=== PATIENT | female | born 1935 | race Caucasian/White ===

== ENCOUNTER 2019-11-26 10:50 | Emergency (ER) | payer MEDICARE ==
[~2019-11-26] VITALS: Ht 165.1 cm; Wt 83.0 kg
[2019-11-26] MEDS ORDERED: IOHEXOL 300 MG/ML 75 ML VIAL. IV ONE (12:00)
[2019-11-26 12:09] LABS: BASO # 0.1 x10^3/uL (0.0-0.2); BASO % 1 % (0-3); EOS # 0.1 x10^3/uL (0.0-0.7); EOS % 1 % (0-3); HEMOGLOBIN 11.5 g/dL (12.0-15.5); LYMPH # 2.9 x10^3/uL (1.0-4.8); LYMPH % 28 % (24-48); MEAN CORPUSCULAR HEMOGLOBIN 34 pg (25-35); MEAN CORPUSCULAR HGB CONC 34 g/dL (31-37); MEAN CORPUSCULAR VOLUME 99 fL (79-100); MONO # 0.9 x10^3/uL (0.0-1.1); MONO % 8 % (0-9); NEUT # 6.4 x10^3uL (1.8-7.7); NEUT % 62 % (31-73); PLATELET COUNT 237 x10^3/uL (140-400); RED BLOOD COUNT 3.42 x10^6/uL (3.50-5.40); RED CELL DISTRIBUTION WIDTH 14.2 % (11.5-14.5); WHITE BLOOD COUNT 10.4 x10^3/uL (4.0-11.0)
[2019-11-26 12:15] LABS: CREATININE 1.5 mg/dL (0.6-1.0); POTASSIUM 4.1 mmol/L (3.5-5.1)
[2019-11-26 12:20] LABS: ALBUMIN 3.1 g/dL (3.4-5.0); ALBUMIN/GLOBULIN RATIO 0.9 (1.0-1.7); TOTAL BILIRUBIN 0.3 mg/dL (0.2-1.0); TOTAL PROTEIN 6.7 g/dL (6.4-8.2)
--- NOTE | 2019-11-26 12:53 | RAD ---
CT ABDOMEN PELVIS WO CONTRAST History: Reason: right hip pain to groin, h/o uti sepsis / Spl. Instructions: / History: Technique: Noncontrast examination of the abdomen and pelvis. Coronal and sagittal reconstructions were performed. Exposure: One or more of the following individualized dose reduction techniques were utilized for this examination: 1. Automated exposure control 2. Adjustment of the mA and/or kV according to patient size 3. Use of iterative reconstruction technique. Comparison: None Findings: Lower chest: No consolidation or pleural effusion. Small hiatal hernia. Abdomen and pelvis: The liver, spleen, adrenal glands, pancreas and gallbladder are unremarkable. No biliary ductal dilatation. Mild renal cortical thinning. No hydronephrosis. No renal, ureteral or urinary bladder calculi. The compressed urinary bladder. Pessary noted. Prior hysterectomy. Mild colonic diverticulosis. Small fat-containing umbilical hernia. Normal appendix. No evidence of bowel obstruction. No pathologic lymphadenopathy. No ascites. Atheromatous plaque throughout the nonaneurysmal abdominal aorta. Dystrophic calcification within the gastrohepatic region. Bones: Multilevel lumbar spondylosis. Impression: 1. No acute abdominal or pelvic pathology. Electronically signed by: Cody Lara DO (11/26/2019 12:50 PM) [facility]
--- NOTE | 2019-11-26 13:08 | PHYS DOC ---
Past History Past Medical History: Hypertension, UTI Additional Past Medical Histor: fracture wrist left 1999 Past Surgical History: Hysterectomy Alcohol Use: None General Adult EDM: Chief Complaint: GROIN PAIN HPI: HPI: 83-year-old female past medical history significant for hypertension, hyperlipidemia, polymyalgia rheumatica on daily steroids, presents to the ED with complaints of right hip pains rating to the right groin that started a few days ago, described as burning in nature. Patient states she drove here yesterday from [place], and the day before that was coming from [place]. States she is visiting the recent of her great granddaughter. States prior to this pain she was having right hip pain that radiated down her leg she saw her primary care physician for it. Patient with a past surgical history of total abdominal hysterectomy and states she is worried about her appendix. Has not missed her daily steroids. Review of Systems: Review of Systems: Constitutional: Denies fever or chills Eyes: Denies change in visual acuity HENT: Denies nasal congestion or sore throat Respiratory: Denies cough or shortness of breath Cardiovascular: Denies chest pain or edema GI: Denies nausea, vomiting, bloody stools or diarrhea : Denies dysuria, materia Musculoskeletal: Denies back pain/CVA or joint pain Integument: Denies rash Neurologic: Denies headache, focal weakness or sensory changes, saddle anesthesia, urinary or bowel retention or incontinence Endocrine: Denies polyuria or polydipsia Lymphatic: Denies swollen glands Psychiatric: Denies depression or anxiety Heart Score: Risk Factors: Risk Factors: DM, Current or recent (<one month) smoker, HTN, HLP, family history of CAD, obesity. Risk Scores: Score 0 - 3: 2.5% MACE over next 6 weeks - Discharge Home Score 4 - 6: 20.3% MACE over next 6 weeks - Admit for Clinical Observation Score 7 - 10: 72.7% MACE over next 6 weeks - Early Invasive Strategies Current Medications: Current Meds: Current Medications Medications (Trade) Dose Ordered Sig/Catia Start Time Stop Time Status Last Admin Dose Admin Iohexol (Omnipaque 300 Mg/ml) 75 ml 1X ONCE 11/26/19 12:00 11/26/19 12:01 DC Allergies: Allergies: Allergies Coded Allergies Type Severity Reaction Last Updated Verified Vlifxpg-Zyb-Loa Reductase Inhibitor Allergy Mild 11/26/19 Yes morphine Allergy Mild 11/26/19 Yes procaine Allergy Unknown 11/26/19 Yes Physical Exam: PE: Constitutional: Well developed, well nourished, no acute distress, non-toxic appearance. [] HENT: Normocephalic, atraumatic, Eyes: EOMI, conjunctiva normal, no discharge. [] Neck: Normal range of motion, supple, Cardiovascular:Heart rate regular rhythm, no murmur [] Lungs & Thorax: Bilateral breath sounds clear to auscultation [] Abdomen: Bowel sounds normal, soft, RLQ ttp, no abdominal or inguinal hernias, Skin: Warm, dry, no erythema, no rash. [] Back: No tenderness, no CVA tenderness. [] Extremities: No tenderness, no cyanosis, no clubbing, ROM intact, no edema. [] Neurologic: Alert and oriented X 3, normal motor function, normal sensory function, no focal deficits noted. [] Psychologic: Affect normal, judgement normal, mood normal. [] Current Patient Data: Labs: Laboratory Tests Test 11/26/19 11:50 White Blood Count 10.4 x10^3/uL (4.0-11.0) Red Blood Count 3.42 x10^6/uL (3.50-5.40) L Hemoglobin 11.5 g/dL (12.0-15.5) L Hematocrit 34.0 % (36.0-47.0) L Mean Corpuscular Volume 99 fL (79-100) Mean Corpuscular Hemoglobin 34 pg (25-35) Mean Corpuscular Hemoglobin Concent 34 g/dL (31-37) Red Cell Distribution Width 14.2 % (11.5-14.5) Platelet Count 237 x10^3/uL (140-400) Neutrophils (%) (Auto) 62 % (31-73) Lymphocytes (%) (Auto) 28 % (24-48) Monocytes (%) (Auto) 8 % (0-9) Eosinophils (%) (Auto) 1 % (0-3) Basophils (%) (Auto) 1 % (0-3) Neutrophils # (Auto) 6.4 x10^3uL (1.8-7.7) Lymphocytes # (Auto) 2.9 x10^3/uL (1.0-4.8) Monocytes # (Auto) 0.9 x10^3/uL (0.0-1.1) Eosinophils # (Auto) 0.1 x10^3/uL (0.0-0.7) Basophils # (Auto) 0.1 x10^3/uL (0.0-0.2) Sodium Level 139 mmol/L (136-145) Potassium Level 4.1 mmol/L (3.5-5.1) Chloride Level 104 mmol/L (98-107) Carbon Dioxide Level 28 mmol/L (21-32) Anion Gap 7 (6-14) Blood Urea Nitrogen 29 mg/dL (7-20) H Creatinine 1.5 mg/dL (0.6-1.0) H Estimated GFR (Cockcroft-Gault) 33.0 BUN/Creatinine Ratio 19 (6-20) Glucose Level 77 mg/dL (70-99) Calcium Level 9.0 mg/dL (8.5-10.1) Total Bilirubin 0.3 mg/dL (0.2-1.0) Aspartate Amino Transferase (AST) 15 U/L (15-37) Alanine Aminotransferase (ALT) 33 U/L (14-59) Alkaline Phosphatase 48 U/L (46-116) Total Protein 6.7 g/dL (6.4-8.2) Albumin 3.1 g/dL (3.4-5.0) L Albumin/Globulin Ratio 0.9 (1.0-1.7) L Vital Signs: Vital Signs Date Time Temp Pulse Resp B/P (MAP) Pulse Ox O2 Delivery O2 Flow Rate FiO2 11/26/19 11:45 62 18 200/86 (124) 94 Room Air 11/26/19 11:26 97.9 EKG: EKG: IMAGING REPORT Sinus rhythm at 61 bpm, no axis deviation, first-degree AV block with AL interval 226, QTC 410, T wave inversions lead III, V2 through V6, no ST elevations or ST depressions, no active chest pain Radiology/Procedures: Radiology/Procedures: []IMAGING REPORT Signed PATIENT: JUAN MANUEL HENRY ACCOUNT: [id number] : 1935 LOCATION: ER AGE: 83 SEX: F EXAM STATUS: REG ER ORD. PHYSICIAN: ROSA LISA DO REASON: abd pain PROCEDURE: CHEST AP ONLY CHEST AP ONLY History: Reason: abd pain / Spl. Instructions: / History: Comparison: None. Findings: Mild bibasilar linear atelectasis. No pleural effusion. No pneumothorax. Normal heart size. Impression: 1. Mild bibasilar linear atelectasis. Electronically signed by: Cody Lara DO (11/26/2019 2:05 PM) [facility] DICTATED AND SIGNED BY: CODY LARA DO DATE: 11/26/19 1405 CC: PCP,NO; ROSA LISA DO ~ IMAGING REPORT Signed PATIENT: JUAN MANUEL HENRY ACCOUNT: [id number] : 1935 LOCATION: ER AGE: 83 SEX: F EXAM STATUS: REG ER ORD. PHYSICIAN: ROSA LISA DO REASON: right hip pain to groin, h/o uti sepsis PROCEDURE: CT ABDOMEN PELVIS WO CONTRAST CT ABDOMEN PELVIS WO CONTRAST History: Reason: right hip pain to groin, h/o uti sepsis / Spl. Instructions: / History: Technique: Noncontrast examination of the abdomen and pelvis. Coronal and sagittal reconstructions were performed. Exposure: One or more of the following individualized dose reduction techniques were utilized for this examination: 1. Automated exposure control 2. Adjustment of the mA and/or kV according to patient size 3. Use of iterative reconstruction technique. Comparison: None Findings: Lower chest: No consolidation or pleural effusion. Small hiatal hernia. Abdomen and pelvis: The liver, spleen, adrenal glands, pancreas and gallbladder are unremarkable. No biliary ductal dilatation. Mild renal cortical thinning. No hydronephrosis. No renal, ureteral or urinary bladder calculi. The compressed urinary bladder. Pessary noted. Prior hysterectomy. Mild colonic diverticulosis. Small fat-containing umbilical hernia. Normal appendix. No evidence of bowel obstruction. No pathologic lymphadenopathy. No ascites. Atheromatous plaque throughout the nonaneurysmal abdominal aorta. Dystrophic calcification within the gastrohepatic region. Bones: Multilevel lumbar spondylosis. Impression: 1. No acute abdominal or pelvic pathology. Electronically signed by: Cody Lara DO (11/26/2019 12:50 PM) [facility] DICTATED AND SIGNED BY: CODY LARA DO Course & Med Decision Making: Course & Med Decision Making Pertinent Labs and Imaging studies reviewed. (See chart for details) Pt presents the ED with right groin pain radiating down her leg, atraumatic. Also with asymptomatic uncontrolled hypertension with renal insufficiency, creatinine 1.6-pt with known h/o ckd3. Patient states she did not take her m edications this morning, takes her BP (is on Bystolic 10 mg and irbesartan 150 mg) medications at night. Labs also showed normocytic anemia of 11.5 and patient has a uti. EKG with inferiorlateral TWIs-daughter reports patient is on Plavix for a cardiac murmur, negative stress test 2 years ago, no history of ACS or STEMI emergently follows with a medical specialist who she saw 2 months ago and had an EKG.. Pt here visiting from out of town-has no active chest pain, dyspnea, confusion or neuro deficits. Repeat blood pressure was 157/64. Patient was informed that her EKG had inferolateral T wave inversions and if she should have any chest pain pressure, squeezing or heaviness she needs to return to the emergency department immediately. Pt follows with a teenage babysitter. Last stress test was unremarkable 2 years ago. Patient did have an EKG with her medical specialist done 2 months ago. No prior for comparison. Pt on tramadol and gabapentin. Will add flexeril for pain and treat uti with levaquin. Daughter states patient was admitted to the hospital to months ago for hyponatremia, delirium secondary to a UTI that required IV antibiotics and was discharged with Cipro (failed outpt keflex), finished this 1.5 weeks ago. Encouraged urgent outpatient follow-up with PMD and cardiology. Life-threatening processes were considered but are low suspicion at this time, given history and physical exam. Pt was educated on all prescription medications and adverse effects. All patient's questions were answered and pt was stable at time of discharge. Differential includes aortic dissection, aortic aneurysm, acute coronary syndrome, surgical abdomen (appendicitis, cholecystitis, ischemic bowel, strangulated hernia, etc), bowel obstruction or volvulus, bladder outlet obstruction, gastrointestinal bleeding, inflammatory bowel disease, peptic ulcer disease, sepsis, diverticular disease, ureterolithiasis, nephrolithiasis, ovarian or testicular torsion, ectopic , vaginal hemorrhage of infection I spoken with the patient and her caregivers. I explained the patient's condition, diagnoses and treatment plan based on the information available to me at this time. I have answered the patient and her caregiver's questions and addressed any concerns. The patient and her caregivers have a good understanding of patient's diagnosis, condition and treatment plan as can be expected at this point. Vital signs have been stable. Patient's condition is stable and appropriate for discharge from the emergency department. Patient will pursue further outpatient evaluation with primary care physician or other designated or consulting physician as outlined in the discharge instr uctions. The patient and/or caregivers are agreeable to this plan of care and follow-up instructions have been explained in detail. The patient and/or caregivers have received these instructions in written form and have expressed an understanding of the discharge instructions. The patient and/or caregivers are aware that any significant change of condition or worsening of symptoms should prompt immediate return to this or the closest emergency department or call to 911. Debbie Disclaimer: Debbie Disclaimer: This electronic medical record was generated, in whole or in part, using a voice recognition dictation system. Departure Departure: Impression: Primary Impression: Uncontrolled hypertension Additional Impressions: Right lumbosacral radiculopathy UTI (urinary tract infection) Renal insufficiency T wave inversion in EKG Normocytic anemia CKD (chronic kidney disease), stage III Disposition: HOME/RESIDENCE PRIOR TO ADM Condition: STABLE Referrals: PCP,JUDY (PCP) Patient Instructions: Dysuria, Hypertension, Lumbosacral Radiculopathy Additional Instructions: Roosevelt Jones MD Primary Specialties Cardiovascular Disease Interventional Cardiology [facility] Address: [address] [place] [id number] Scripts Levofloxacin (LEVOFLOXACIN) 500 Mg Tablet 1 TAB PO DAILY for uti, #14 TAB Prov: ROSA LISA DO 11/26/19 Cyclobenzaprine Hcl (CYCLOBENZAPRINE HCL) 5 Mg Tablet 1 TAB PO TID for pain, #20 TAB Prov: ROSA LISA DO 11/26/19 Justification of Admission: Justification of Admission: Justification of Admission Dx: N/A ROSA LISA DO Nov 26, 2019 13:08
[2019-11-26 13:15] LABS: BILIRUBIN,URINE NEG (NEG); CLARITY,URINE HAZY; COLOR,URINE YELLOW; GLUCOSE,URINE NEG (NEG); NITRITE,URINE NEG (NEG); UROBILINOGEN,URINE 0.2 mg/dL (0.2 mg/dL)
[2019-11-26] MEDS ORDERED: hydrALAZINE 20 MG/ML VIAL. IV ONE (13:15)
[2019-11-26] MEDS ORDERED: traMADol 50 MG TABLET PO ONE (13:15)
[2019-11-26 13:16] LABS: BACTERIA,URINE MOD /HPF (0-FEW); HYALINE CASTS, URINE FEW /HPF; SQUAMOUS EPITHELIAL CELL,UR MANY /LPF; WBC,URINE 20-40 /HPF (0-4)
--- NOTE | 2019-11-26 13:23 | EKG ---
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
[2019-11-26] MEDS ORDERED: BACLOFEN 10 MG TABLET PO SCH (13:30)
--- NOTE | 2019-11-26 14:08 | RAD ---
CHEST AP ONLY History: Reason: abd pain / Spl. Instructions: / History: Comparison: None. Findings: Mild bibasilar linear atelectasis. No pleural effusion. No pneumothorax. Normal heart size. Impression: 1. Mild bibasilar linear atelectasis. Electronically signed by: Cody Lara DO (11/26/2019 2:05 PM) [facility]
[2019-11-26] MEDS ORDERED: CEPH-264 PO (15:00)
[2019-11-26] MEDS ORDERED: CYCL5TAB PO (15:00)
[2019-11-26] MEDS ORDERED: LEVO500T8 PO (15:33)
[2019-11-26 16:09] VITALS: BP 159/66
== END 2019-11-26 16:04 | disposition home or self-care (01) ==
LOC: ER 10:50
DX: I12.9 Hypertensive chronic kidney disease with stage 1 through stage 4 chronic kidney disease, or unspecified chronic kidney disease (principal); N18.3 Chronic kidney disease, stage 3 (moderate); M54.17 Radiculopathy, lumbosacral region; N39.0 Urinary tract infection, site not specified; N28.9 Disorder of kidney and ureter, unspecified; D64.9 Anemia, unspecified; R94.31 Abnormal electrocardiogram [ECG] [EKG]; M25.551 Pain in right hip; E78.5 Hyperlipidemia, unspecified; Z90.710 Acquired absence of both cervix and uterus; Z88.8 Allergy status to other drugs, medicaments and biological substances; Z88.5 Allergy status to narcotic agent; Z88.4 Allergy status to anesthetic agent
CPT/HCPCS: 36415; 71045; 74176; 80053; 81001; 84484; 85025; 87086; 93005; 96374; 99285; J0360